=== PATIENT | male | born 1945 | race Caucasian/White ===

== ENCOUNTER → 2017-06-19 | Outpatient (REF) | payer OTHER | LOC: M LAB REF 16:14 | PROVIDERS: ATTEND Nurse Practitioner Family | DX: R21 Rash and other nonspecific skin eruption (principal) ==

== ENCOUNTER → 2017-06-22 | Outpatient (REF) | payer BC ==
[2017-06-26 00:06] LABS: Lyme Disease IgG/IgM Antibodie <0.91 ISR (0.00-0.90); Lyme Disease IgM Ab Quantitati <0.80 index (0.00-0.79)
== END ==
LOC: M LAB REF 16:34
PROVIDERS: ATTEND Internal Medicine
DX: M25.50 Pain in unspecified joint (principal)

== ENCOUNTER 2019-04-27 09:03 | Emergency (ER) | payer BC ==
[~2019-04-27] VITALS: Ht 180.3 cm; Wt 98.8 kg
[2019-04-27] MEDS ORDERED: GABA-843 (09:15)
[2019-04-27] MEDS ORDERED: TOUJ1.2I SQ (09:15)
[2019-04-27] MEDS ORDERED: HUMA100I5 (09:15)
[2019-04-27] MEDS ORDERED: PRAV80TA2 (09:15)
[2019-04-27] MEDS ORDERED: LOSA100T50 (09:15)
[2019-04-27] MEDS ORDERED: CHLO125TA PO (09:15)
[2019-04-27] MEDS ORDERED: ASPI81CH33 PO (09:15)
[2019-04-27] MEDS ORDERED: CLOP75TA2 (09:15)
[2019-04-27] MEDS ORDERED: METF-791 (09:15)
[2019-04-27] MEDS ORDERED: SPIR-10 PO (09:15)
[2019-04-27] MEDS ORDERED: ONDANSETRON 4MG/2ML VIAL (J2405) IV ONE (09:45)
[2019-04-27] MEDS ORDERED: MORPHINE 2 MG/ML 1ML SYRINGE (J2270) IV ONE ×2 (09:45→12:30)
[2019-04-27 10:21] LABS: BASO % 0.3 % (0.0-1.0); EOS # 0.1 10^3/uL (0.0-0.50); EOS % 0.9 % (0.0-3.0); HEMATOCRIT 40.3 % (42.0-52.0); HEMOGLOBIN 13.9 g/dl (13.5-17.5); LYMPH # 1.2 10^3/uL (1.5-4.5); LYMPH % 12.4 % (24.0-44.0); MEAN CORPUSCULAR HEMOGLOBIN 32.3 pg (27.0-33.0); MEAN CORPUSCULAR HGB CONC 34.5 g/dl (32.0-36.5); MEAN CORPUSCULAR VOLUME 93.5 fl (80.0-96.0); MONO # 0.6 10^3/uL (0.0-0.8); NEUTROPHILS # 7.7 10^3/uL (1.8-7.7); NEUTROPHILS % 79.5 % (36.0-66.0); PLATELET COUNT, AUTOMATED 147 10^3/uL (150-450); RED BLOOD COUNT 4.31 10^6/uL (4.30-6.10); WHITE BLOOD COUNT 9.6 10^3/uL (4.0-10.0)
[2019-04-27 10:35] LABS: INR 1.05; PROTHROMBIN TIME 13.4 SECONDS (11.8-14.0)
[2019-04-27 10:36] LABS: PARTIAL THROMBOPLASTIN TIME 28.6 SECONDS (25.0-38.4)
[2019-04-27 10:47] LABS: BLOOD UREA NITROGEN 21 MG/DL (7-18); CALCIUM LEVEL 8.7 MG/DL (8.8-10.2); CARBON DIOXIDE LEVEL 28 MEQ/L (21-32); CHLORIDE LEVEL 102 MEQ/L (98-107); CREATININE FOR GFR 1.16 MG/DL (0.70-1.30); GLOMERULAR FILTRATION RATE > 60.0 (>42); GLUCOSE, FASTING 273 MG/DL (70-100); POTASSIUM SERUM 4.2 MEQ/L (3.5-5.1); SODIUM LEVEL 136 MEQ/L (136-145)
--- NOTE | 2019-04-27 11:28 | REP ---
CT BRAIN WITHOUT CONTRAST: 04/27/2019. Clinical history: Status post fall. Trauma. Findings: No prior study. The soft tissue and bone windows show lateral ventricles midline and symmetric without dilatation or displacement. Third and fourth ventricles unremarkable. Some midline calcifications in the falx are benign findings. Wolf-white junction differentiation is well maintained. Basal ganglia symmetric and normal. There is minimal less atrophy, age appropriate. There is no intracranial hemorrhage, acute infarct, mass, edema or mass effect. No extra-axial fluid collection. Brainstem intact. Cerebellum with mild atrophy but no mass or posterior fossa bleed. Basal cisterns are intact. Mastoids and visualized sinuses are clear. The skull base and calvarium show no fracture or focal lesion. There are some calcifications in the carotid siphons. Impression: 1. Some minor age-related changes with no evidence of infarct, intracranial hemorrhage, mass, edema, skull fracture or other acute finding. Electronically Signed by Missael Vallejo MD 04/27/2019 09:48 P
--- NOTE | 2019-04-27 11:57 | REP ---
CT CERVICAL SPINE WITHOUT CONTRAST: 04/27/2019. Clinical history: Neck pain status post fall. Comparison: MRI cervical 02/04/2015. Findings: The sagittal reconstructions show plate and screw fixation. Standard trauma protocol utilized. There were no prior studies. The C5-C6 anterior cervical discectomy and fusion show graft incorporation. The disc spaces above and below this are preserved. There are small marginal osteophytes at C4-5 and at C6-7. No compression fractures or malalignment. The ring of C1 is intact, its relationship to the dens is normal on all projections. There are some degenerative changes at the C1-2 interval. Craniocervical junction was intact. Spinous processes, lamina, pedicles, facets and transverse processes were intact although there are some degenerative changes at multiple facets, on the right at C4-5 and on the left at C6-7. There is no central canal stenosis or foraminal encroachment at any level. The upper thoracic levels and visualized first two ribs were unremarkable as are the lung apices. There is no prevertebral swelling. Some atherosclerotic calcifications are noted in the aorta. There is an enlarged thyroid with calcifications in a nodule in the left lobe posteriorly. Thyroid size similar to that seen on the cervical 4 years ago. No compression fractures or malalignment. Impression: 1. Status post C5-6 anterior cervical discectomy and fusion without evidence of an acute fracture, malalignment, spinal or foraminal stenosis. No acute finding. Electronically Signed by Missael Vallejo MD 04/27/2019 09:49 P
[2019-04-27] MEDS ORDERED: predniSONE 20 MG TAB PO ONE (12:30)
[2019-04-27] MEDS ORDERED: CYCL5TAB PO (12:39)
--- NOTE | 2019-04-27 12:42 | REP ---
LEFT CLAVICLE SERIES: 04/27/2019. Clinical history: Tenderness left clavicle, status post fall. Two views of the clavicle were provided. AC joint was intact. There is no widening of the joint space or elevation of the clavicle. No visible clavicular fracture. Those visible ribs, scapula and humeral head were unremarkable. Impression: 1. No visible clavicular fracture. Other visible bones were unremarkable. Electronically Signed by Missael Vallejo MD 04/27/2019 09:52 P
[2019-04-27 12:47] VITALS: BP 175/79
[2019-04-27] MEDS ORDERED: NEOSPORIN OINT 0.9 GM PKT (FLOOR STOCK) TOP ONE (13:15)
[2019-04-27] MEDS ORDERED: CYCLOBENZAPRINE 5MG TABLET PO ONE (13:15)
[2019-04-27] MEDS ORDERED: PRED20TA PO (18:06)
== END 2019-04-27 13:40 | disposition home or self-care (01) ==
LOC: M ED 09:03
DX: S00.81XA Abrasion of other part of head, initial encounter (principal); S00.31XA Abrasion of nose, initial encounter; S16.1XXA Strain of muscle, fascia and tendon at neck level, initial encounter; S13.4XXA Sprain of ligaments of cervical spine, initial encounter; M25.512 Pain in left shoulder; W01.10XA Fall on same level from slipping, tripping and stumbling with subsequent striking against unspecified object, initial encounter; Y92.830 Public park as the place of occurrence of the external cause; Y93.9 Activity, unspecified; Y99.9 Unspecified external cause status; I25.10 Atherosclerotic heart disease of native coronary artery without angina pectoris; E11.9 Type 2 diabetes mellitus without complications; I10 Essential (primary) hypertension; E78.5 Hyperlipidemia, unspecified; G62.9 Polyneuropathy, unspecified; Z95.5 Presence of coronary angioplasty implant and graft; Z79.82 Long term (current) use of aspirin; Z79.4 Long term (current) use of insulin; Z79.899 Other long term (current) drug therapy
CPT/HCPCS: 70450; 72125; 73000; 80048; 85025; 85610; 85730; 96374; 96375; 96376; 99284; J2270; J2405

== ENCOUNTER → 2019-05-07 | Outpatient (REF) | payer BC ==
[~2019-05-07] MED LIST: ASPI81CH33 PO; CHLO125TA PO; CLOP75TA2; CYCL5TAB PO; GABA-843; HUMA100I5; LOSA100T50; METF-791; PRAV80TA2; PRED20TA PO; SPIR-10 PO; TOUJ1.2I SQ
[2019-05-07 11:30] LABS: BLOOD UREA NITROGEN 16 MG/DL (7-18); CREATININE FOR GFR 1.01 MG/DL (0.70-1.30); GLOMERULAR FILTRATION RATE > 60.0 (>42)
== END ==
LOC: M LABDRAW1 10:58
PROVIDERS: ATTEND Physician Assistant
DX: S13.8XXA Sprain of joints and ligaments of other parts of neck, initial encounter (principal); W18.30XA Fall on same level, unspecified, initial encounter; Y92.009 Unspecified place in unspecified non-institutional (private) residence as the place of occurrence of the external cause

== ENCOUNTER → 2022-12-08 | Outpatient (CLI) | payer BC ==
[~2022-12-08] MED LIST changes: +GABA-282; -GABA-843; +LOSA100T45; -LOSA100T50; -METF-791; +METF-838
== END ==
LOC: M WUC 11:04
PROVIDERS: ATTEND Internal Medicine
DX: M25.561 Pain in right knee (principal)

== ENCOUNTER 2023-06-12 10:52 | Emergency (ER) | payer BC ==
[~2023-06-12] VITALS: Ht 180.3 cm; Wt 86.4 kg
[~2023-06-12 10:52] MED LIST changes: -LOSA100T45; +LOSA100T46
[2023-06-12] MEDS ORDERED: LIDOCAINE 5% (LIDODERM) PATCH TD ONE (14:10)
[2023-06-12] MEDS ORDERED: predniSONE 20 MG TAB PO ONE (14:10)
[2023-06-12] MEDS ORDERED: methocarbamoL 750 MG TAB PO ONE (14:10)
[2023-06-12] MEDS ORDERED: KETOROLAC 60MG 2ML VIAL IM ONE (14:10)
[2023-06-12] MEDS ORDERED: ANEC4CRE3 TOP (15:03)
[2023-06-12] MEDS ORDERED: MEDR4PAK PO (15:03)
[2023-06-12] MEDS ORDERED: METH-1165 PO (15:03)
[2023-06-12 15:34] VITALS: BP 126/67; TEMP 97; O2SAT 97
== END 2023-06-12 15:40 | disposition home or self-care (01) ==
LOC: M ED 10:52
DX: M54.2 Cervicalgia (principal); E11.9 Type 2 diabetes mellitus without complications; E78.5 Hyperlipidemia, unspecified; I10 Essential (primary) hypertension; Z79.4 Long term (current) use of insulin; Z98.1 Arthrodesis status; Z79.82 Long term (current) use of aspirin; Z79.899 Other long term (current) drug therapy
CPT/HCPCS: 72125; 96372; 99283; J1885; J7512

== ENCOUNTER 2025-01-23 09:42 | Day surgery (SDC) | payer BC ==
[~2025-01-23] VITALS: Ht 180.3 cm; Wt 83.9 kg
[~2025-01-23 09:42] MED LIST changes: +ANEC4CRE3 TOP; +BASA100I SC; -CYCL5TAB PO; +CYCL5TAB4 PO; +EZET10TA21 PO; +GABA-1172; +GABA-1172 PO; -GABA-282; +INSUHUMDS SC; +JARD1TAB PO; +LOSA100T46 PO; +MEDR4PAK PO; +METF500T13 PO; +METH-1165 PO; +NITR0.4S14 SL; +PRAV80TA2 PO; +TORS10TA3 PO
[2025-01-23 11:37] VITALS: TEMP 99
[2025-01-23 11:56] VITALS: BP 117/58; O2SAT 95
== END 2025-01-23 12:05 | disposition home or self-care (01) ==
LOC: M OPP 09:42
PROVIDERS: ATTEND Surgery
DX: Z12.11 Encounter for screening for malignant neoplasm of colon (principal); R19.5 Other fecal abnormalities; D12.6 Benign neoplasm of colon, unspecified; K57.30 Diverticulosis of large intestine without perforation or abscess without bleeding; K29.80 Duodenitis without bleeding; K44.9 Diaphragmatic hernia without obstruction or gangrene; R10.12 Left upper quadrant pain; Z95.5 Presence of coronary angioplasty implant and graft; Z79.82 Long term (current) use of aspirin; Z79.4 Long term (current) use of insulin; Z79.84 Long term (current) use of oral hypoglycemic drugs; Z79.899 Other long term (current) drug therapy